=== PATIENT | female | born 1935 | race Caucasian/White ===

== ENCOUNTER → 2025-02-21 | Emergency (ER) | payer MEDICARE, MEDICAID ==
[~2025-02-21] VITALS: Ht 157.5 cm; Wt 72.3 kg
[~2025-02-21] MED LIST: IBUP-1492 PO; IBUPROFEN 600 MG TABLET PO ONE; LISI-892 PO
[2025-02-21 16:34] VITALS: TEMP 97.7
[2025-02-21] MEDS: KETOROLAC TROMETHAMINE 30 MG/ML VIAL IM ONE (19:37)
[2025-02-21 19:38] VITALS: BP 139/75; PULSE 63; RESP 19; O2SAT 96
== END | disposition still patient (30) ==
LOC: EMS 16:17
DX: S43.402A Unspecified sprain of left shoulder joint, initial encounter (principal); I10 Essential (primary) hypertension; M19.90 Unspecified osteoarthritis, unspecified site; Z79.899 Other long term (current) drug therapy; W01.198A Fall on same level from slipping, tripping and stumbling with subsequent striking against other object, initial encounter; Y93.89 Activity, other specified; Y92.89 Other specified places as the place of occurrence of the external cause; Y99.8 Other external cause status
CPT/HCPCS: 99283; 73030; 96372; J1885